=== PATIENT | female | born 1995 | race Caucasian/White ===

== ENCOUNTER 2017-01-07 19:10 | Emergency (ER) | payer SELFPAY | END 2017-01-07 20:06 | disposition left against medical advice (07) | LOC: E/R 19:10 | DX: Z53.21 Procedure and treatment not carried out due to patient leaving prior to being seen by health care provider (principal) ==

== ENCOUNTER 2018-06-05 22:36 | Emergency (ER) | END 2018-06-06 03:14 | disposition home or self-care (01) ==